=== PATIENT | female | born 1955 | race Two or more races ===

== ENCOUNTER 2024-03-04 11:12 | Emergency (ER) | payer OTHER ==
[~2024-03-04] VITALS: Ht 154.9 cm; Wt 62.7 kg
[2024-03-04] MEDS: SODIUM CHLORIDE 0.9% 1,000 ML IV ONE (11:42)
[2024-03-04] MEDS: ONDANSETRON HCL 4 MG/2 ML VIAL IV ONE (11:42)
[2024-03-04] MEDS ORDERED: metroNIDAZOLE 500MG/100ML 100 ML IV ONE (13:00)
[2024-03-04] MEDS: CIPROFLOXACIN HCL 500 MG TAB PO ONE (13:10)
[2024-03-04 13:12] LABS: Basophils # (auto) 0 10 ^3/uL (0-0.2); Basophils % (auto) 0.2 % (0.0-2.0); Eosinophils # (auto) 0.1 10 ^3/uL (0-0.8); Eosinophils % (auto) 0.4 % (0.0-7.0); Hematocrit 40.8 % (36.0-46.0); Hemoglobin 13.9 g/dL (12.2-16.2); Lymphocytes # (auto) 0.9 10 ^3/uL (0.4-5.4); Lymphocytes % (auto) 5.2 % (10.0-50.0); Mean Corpuscular Hemoglobin 29.8 pg (28.0-32.0); Mean Corpuscular Volume 87.7 fL (80.0-100.0); Monocytes # (auto) 0.8 10 ^3/uL (0-1.3); Neutrophils # (auto) 15.1 10 ^3/uL (1.6-8.6); Neutrophils % (auto) 89.2 % (37.0-80.0); Red Blood Cells 4.65 10^6/uL (4.0-5.20); Red Cell Distribution Width 13.4 % (11.8-14.3); White Blood Cell 16.9 10^3/uL (4.4-10.8)
[2024-03-04 13:25] LABS: Urine Bacteria FEW /hpf (None Seen); Urine Blood TRACE /uL (Negative); Urine Clarity Clear (Clear); Urine Color Light-Yellow (Yellow); Urine Mucus FEW (None Seen); Urine Protein, UAD Negative (Negative); Urine Urobilinogen Normal (Negative); Urine WBC 1 /hpf (0 - 5)
[2024-03-04] MEDS: metroNIDAZOLE 500 MG TAB PO ONE (13:26)
[2024-03-04 13:27] LABS: COVID19 ANTIGEN SOFIA FIA NEGATIVE (NEGATIVE)
[2024-03-04 13:29] LABS: Rapid Influenza A Negative (Negative); Rapid Influenza B Negative (Negative)
[2024-03-04 13:36] LABS: Alanine Aminotransferase 26 U/L (7-40); Albumin 4.1 g/dL (3.2-4.8); Alkaline Phosphatase 64 U/L (46-116); Anion Gap 7 (5-15); Aspartate Aminotransferase 15 U/L (13-40); BUN/Creatinine Ratio 9.6 (10.0-20.0); Bilirubin, Total 0.9 mg/dL (0.2-1.0); Blood Urea Nitrogen 5 mg/dL (9-23); Calcium 9.2 mg/dL (8.7-10.4); Carbon Dioxide 23 mmol/L (20-30); Chloride 113 mmol/L (98-107); Glucose 137 mg/dL (74-106); Lipase 28 U/L (12-53); Magnesium 1.5 mg/dL (1.6-2.6); Potassium 3.3 mmol/L (3.5-5.1); Sodium 143 mmol/L (136-145); Total Protein 6.5 g/dL (5.7-8.2)
[2024-03-04] MEDS ORDERED: POTASSIUM CHL 20 Meq TABLET PO ONE (14:45)
[2024-03-04] MEDS ORDERED: MAGNESIUM SULFATE 1GM/100ML 100 ML IV ONE (14:45)
[2024-03-04 17:50] VITALS: BP 144/69; PULSE 95; RESP 20; TEMP 98.6; O2SAT 96
== END 2024-03-04 18:01 | disposition left against medical advice (07) ==
LOC: EDBD 11:12 → ER 11:26
DX: K57.92 Diverticulitis of intestine, part unspecified, without perforation or abscess without bleeding (principal); N39.0 Urinary tract infection, site not specified; E83.42 Hypomagnesemia; D72.829 Elevated white blood cell count, unspecified; R50.9 Fever, unspecified; I10 Essential (primary) hypertension; E03.9 Hypothyroidism, unspecified; Z20.822 Contact with and (suspected) exposure to COVID-19
CPT/HCPCS: 36415; 70450; 74176; 80053; 81001; 83605; 83690; 83735; 84484; 85025; 87040; 87426; 87804; 96360; 99284; J7030